=== PATIENT | female | born 1980 | race Caucasian/White ===

== ENCOUNTER 2022-02-09 10:21 | Emergency (ER) | payer OTHER, SELFPAY ==
[2022-02-09 10:33] VITALS: BP 134/86; PULSE 94; RESP 16; TEMP 37.2; O2SAT 100
--- NOTE | 2022-02-09 11:22 | ED.GENADULT ---
HPI - General Adult General Chief complaint: Skin/Abscess/Foreign Body Stated complaint: Left upper Ear Pain History of Present Illness HPI narrative: Patient is a 41-year-old female who presents to the [facility] via POV for an evaluation of a foreign body embedded into left ear. She states she was taking her shirt off 2 days ago when she accidentally pulled her earring back and now she believes the backing is embedded. She has had multiple unsuccessful attempts to remove backing. She reports tenderness with touch. Related Data Home Medications Medication Instructions Recorded Confirmed Lo-Ovral (28) 1 pill PO DAILY 02/09/22 02/09/22 Allergies Allergy/AdvReac Type Severity Reaction Status Date / Time No Known Allergies Allergy Verified 02/09/22 10:49 Review of Systems Review of Systems: Pertinent negatives fever, chills, sweats, malaise, poor p.o. intake, change in appetite, headache, LOC, dizziness, streaking, drainage, erythema, warmth, numbness, tingling, loss of sensation, foreign body sensation, deformity, sob, chest pain, and heart palpitations/murmurs. PMFSH Comments I have reviewed and agree with the patient's past medical, surgical, social, and family hx as documented by the RN. There is no relevant family history pertinent to the presenting complaint. Exam Narrative: GENERAL: Well-appearing, well-nourished, and in no acute distress. HEAD: Normocephalic, atraumatic. No facial swelling appreciated. EYES: PERRLA and EOMI. No evidence of erythema, swelling, or drainage. ENT: Nares clear, no rhinorrhea or epistaxis.Mucous membranes moist and pink. Uvula is midline without erythema and swelling. No evidence of obstruction, petechial rash, cobblestoning, lesions, ulcers, erythema, swelling, exudates, peritonsillar abscess, tenting, or drooling. Breath odor and voice normal. NECK: Supple. No Lymphadenopathy or nuchal rigidity appreciated. CHEST: Bilateral lung espinal are clear to auscultation. No respiratory distress. No evidence of cough or pleuritic cp upon examination. HEART: Regular rate and rhythm. No murmur, gallop, or rub heard. EXTREMITIES: Normal range of motion. No edema. SKIN: Warm, dry. Foreign body palpated over left pinna. Mild swelling appreciated to left pinna. NEURO: No focal deficits. Alert and oriented x3. SPECIAL OBSERVATIONS: Smiling. Laughing. No evidence of discomfort. Course Course Level of Care: Express Care Visit Vital Signs Vital signs: Vital Signs Temperature 99.0 F 02/09/22 10:33 Pulse Rate 94 02/09/22 10:33 Respiratory Rate 16 02/09/22 10:33 Blood Pressure 134/86 02/09/22 10:33 Pulse Oximetry 100 02/09/22 10:33 Oxygen Delivery Room Air 02/09/22 10:33 Temperature 99.0 F 02/09/22 10:33 Pulse Rate 94 02/09/22 10:33 Respiratory Rate 16 02/09/22 10:33 Blood Pressure 134/86 02/09/22 10:33 Pulse Oximetry 100 02/09/22 10:33 Oxygen Delivery Room Air 02/09/22 10:33 Procedures FB Removal Ear Foreign Body #1: Foreign Body Removal Date: 02/09/22 Foreign Body Removal Time: 11:00 Location: ear canal (L) (PINNA OF LEFT EAR (NOT EAR CANAL) ) Foreign Body Suspected: other (EARRING BACKING) Foreign Body Removed: partial removal (EARRING REMOVED, EARRING BACKING MAY STILL BE EMBEDDED ) Foreign Body Removal Technique: other (0.25 CM INCISION MADE TO POSTERIOR ASPECT OF LEFT PINNA ) Patient Tolerated Procedure: well Complications: bleeding (MILD) Medical Decision Making Vital Signs Vital Signs: Vital Signs Temperature 99.0 F 02/09/22 10:33 Pulse Rate 94 02/09/22 10:33 Respiratory Rate 16 02/09/22 10:33 Blood Pressure 134/86 02/09/22 10:33 Pulse Oximetry 100 02/09/22 10:33 Oxygen Delivery Room Air 02/09/22 10:33 Temperature 99.0 F 02/09/22 10:33 Pulse Rate 94 02/09/22 10:33 Respiratory Rate 16 02/09/22 10:33 Blood Pressure 134/86 02/09/22 1
== END 2022-02-09 11:33 | disposition home or self-care (01) ==
PROVIDERS: Emergency Provider Nurse Practitioner Family
DX: S01.342A Puncture wound with foreign body of left ear, initial encounter (principal); X58.XXXA Exposure to other specified factors, initial encounter
CPT/HCPCS: 10120; 99203; G0463